=== PATIENT | female | born 1990 | race African-American/Black ===

== ENCOUNTER 2016-06-15 23:27 | Emergency (ER) | payer OTHER ==
[2016-06-15 23:38] VITALS: BP 138/70; PULSE 119; TEMP 98.2; BMI 42.2
[2016-06-16] MEDS ORDERED: ACETAMINOPHEN 325 MG TABLET (FP) PO ONE (00:17)
[2016-06-16] MEDS ORDERED: ACETAMINOPHEN 325 MG TABLET (FP) ONE (00:22)
--- NOTE | 2016-06-16 00:36 | PDOC ---
History of Present Illness - General History Source: Patient Exam Limitations: No Limitations - History of Present Illness Initial Comments: 06/16/16 00:39 The patient is a 25 year old female (; currently approximately 19 weeks ), with no significant past medical history, who presents to the emergency department with left ankle pain s/p a mechanical trip and fall down the stairs earlier this evening. The patient states that she missed a step and fell, landing on her buttocks. She states that she did not hit her head, denies head trauma or LOC. The patient denies neck pain, back pain or any numbness/ tingling. The patient denies any other injury. Allergies: Penicillins. Past Surgical History: None reported. Social History: Non smoker. Denies alcohol or drug use. OBGYN: Dr. Dover <Christina Gill - Last Filed: 06/16/16 02:10> - General History Source: Patient Exam Limitations: No Limitations <Alvaro Downey - Last Filed: 06/16/16 02:38> - General Chief Complaint: Injury Stated Complaint: FALL/INJURY/25 WKS Time Seen by Provider: 06/15/16 23:52 Past History <Christina Gill - Last Filed: 06/16/16 02:10> - Past Medical History Asthma: No Cancer: No Cardiac Disorders: No Diabetes: No HTN: No Seizures: No Thyroid Disease: No - Psycho/Social/Smoking Cessation Hx Anxiety: No Suicidal Ideation: No Smoking Status: No Smoking History: Never smoked Have you smoked in the past 12 months: No Number of Cigarettes Smoked Daily: 0 Information on smoking cessation initiated: No Hx Alcohol Use: No Drug/Substance Use Hx: No Substance Use Type: None Hx Substance Use Treatment: No <Alvaro Downey - Last Filed: 06/16/16 02:38> - Past Medical History Allergies/Adverse Reactions: Allergies Allergy/AdvReac Type Severity Reaction Status Date / Time Penicillins Allergy Hives Verified 06/15/16 23:38 Home Medications: Ambulatory Orders Pnv with Ca,No.71/Iron/FA [ Vitamin Tablet] 1 tab PO DAILY 05/23/12 Review of Systems - Review of Systems Able to Perform ROS?: Yes Comments:: 06/16/16 00:38 GENERAL/CONSTITUTIONAL: No fever or chills. No weakness. HEAD, EYES, EARS, NOSE AND THROAT: No change in vision. No ear pain or discharge. No sore throat. CARDIOVASCULAR: No chest pain or shortness of breath. RESPIRATORY: No cough, wheezing, or hemoptysis. GASTROINTESTINAL: No nausea, vomiting, diarrhea or constipation. GENITOURINARY: No dysuria, frequency, or change in urination. MUSCULOSKELETAL: +Left ankle pain. No muscle swelling or pain. No neck or back pain. SKIN: No rash. NEUROLOGIC: No headache, vertigo, loss of consciousness, or change in strength/ sensation. ENDOCRINE: No increased thirst. No abnormal weight change. HEMATOLOGIC/LYMPHATIC: No anemia, easy bleeding, or history of blood clots. ALLERGIC/IMMUNOLOGIC: No hives or skin allergy. <Christina Gill - Last Filed: 06/16/16 02:10> *Physical Exam - Vital Signs Last Vital Signs Temp Pulse Resp BP Pulse Ox 98.2 F 119 H 20 138/70 100 06/15/16 23:34 06/15/16 23:34 06/15/16 23:34 06/15/16 23:34 06/15/16 23:34 - Physical Exam Comments: 06/16/16 00:38 GENERAL: Awake, alert, and fully oriented, in no acute distress. HEAD: No signs of trauma. EYES: PERRLA, EOMI, sclera anicteric, conjunctiva clear. ENT: Auricles normal inspection, hearing grossly normal, nares patent, oropharynx clear without exudates. Moist mucosa. NECK: Normal ROM, supple, no lymphadenopathy, JVD, or masses. LUNGS: Breath sounds equal, clear to auscultation bilaterally. No wheezes, and no crackles. HEART: Regular rate and rhythm, normal S1 and S2, no murmurs, rubs or gallops. ABDOMEN: Soft, nontender, normoactive bowel sounds. No guarding, no rebound. No masses. EXTREMITIES: Swollen left ankle, tenderness to the lateral and medial malleolus , worse at the medial malleolus. No clubbing or cyanosis. No cords or erythema. NEUROLOGICAL: Cranial nerves II through XII intact. Normal speech, gait deferred. SKIN: Warm, dry, normal turgor, no rashes or lesions noted. <Christina Gill - Last Filed: 06/16/16 02:10> - Vital Signs Last Vital Signs Temp Pulse Resp BP Pulse Ox 98.2 F 119 H 20 138/70 100 06/15/16 23:34 06/15/16 23:34 06/15/16 23:34 06/15/16 23:34 06/15/16 23:34 <Alvaro Downey - Last Filed: 06/16/16 02:38> Procedures - Consent Consent obtained: Verbal, From Patient - Splinting Splint Location: Left: Ankle Pre-Proc Neuro Vasc Exam: normal <Alvaro Downey - Last Filed: 06/16/16 02:38> ED Treatment Course - Medications Given in the ED: ED Medications Discontinued Medications Generic Name Dose Route Start Last Admin Trade Name Freq PRN Reason Stop Dose Admin Acetaminophen 975 mg 06/16/16 00:17 06/16/16 00:19 Tylenol - PO 06/16/16 00:18 975 mg ONCE ONE Administration <Christina Gill - Last Filed: 06/16/16 02:10> - RADIOLOGY Radiology Studies Ordered: Category Date Time Status ANKLE-LEFT [RAD] Stat Radiology 06/16/16 00:17 Ordered - Medications Given in the ED: ED Medications Discontinued Medications Generic Name Dose Route Start Last Admin Trade Name Freq PRN Reason Stop Dose Admin Acetaminophen 975 mg 06/16/16 00:17 06/16/16 00:19 Tylenol - PO 06/16/16 00:18 975 mg ONCE ONE Administration <Alvaro Downey - Last Filed: 06/16/16 02:38> Medical Decision Making - Medical Decision Making 06/16/16 00:29 A portion of this note was documented by scribe services under my direction. I have reviewed the details of the note, within reason, and agree with the documentation with the following case summary and management plan written by me. Patient treated in the ED. Nursing notes are reviewed and incorporated into the medical decision-making. Vital signs reviewed. Peripheral IV access obtained by the nurse, laboratory studies are drawn and sent, reviewed and interpreted by myself. Vital Signs Temp Pulse Resp BP Pulse Ox 98.2 F 119 H 20 138/70 100 06/15/16 23:34 06/15/16 23:34 06/15/16 23:34 06/15/16 23:34 06/15/16 23:34 25-year-old female with no past medical history approximately 19 weeks , followed by Dr. Dover presents with mechanical fall. Patient twisted her ankle and landed on her buttocks. Denies abdominal pain or vaginal bleeding. Denies head trauma. Patient reports left ankle swelling and pain acutely worse at the medial malleolus. Patient fails [place] ankle rule. I discussed the risks and benefits of radiograph while with the patient. Given the minimal exposure of x-ray and abdominal coverage with lead, the patient agrees for ankle x-ray. We'll perform an ankle x-ray. 06/16/16 02:13 Xray reviewed by me, pending official radiology read. No acute fractures. however, I suspect that the patient has a high degree sprain. Patient placed in a posterior U splint and made non weight bearing. Elevate the leg. Ice PRN. Follow up with orthopedics. Pt will go home with her . Tylenol only for pain. Crutches given. I had called the L&D. Given less than 20 weeks, patient can be discharged from the ED and does not necessitate FHR monitoring. Pt has NO abdominal pain or vaginal bleed. She is cleared to be discharged. patient verbalizes understanding and agrees with plan. I discussed the physical exam findings, ancillary test results and final diagnoses with the patient. I answered all of the patient's questions. The patient was satisfied with the care received and felt comfortable with the discharge plan and treatment plan. The patient will call their primary care physician within 24 hours to arrange follow-up and will return to the Emergency Department with any new, persistant or worsening symptoms. 06/16/16 02:37 After discussing with [facility], they had reviewed the chart and confirmed that the patient is less than 20 weeks . I had confirmed with the patient and she reports that she is less than 20 weeks . <Alvaro Downey - Last Filed: 06/16/16 02:38> *DC/Admit/Observation/Transfer - Attestations Scribe Attestion: 06/16/16 00:38 Documentation prepared by Christina Gill, acting as medical radiation tech for Alvaro Downey MD. <Christina Gill - Last Filed: 06/16/16 02:10> - Discharge Dispostion Admit: No <Alvaro Downey - Last Filed: 06/16/16 02:38> Diagnosis at time of Disposition: High ankle sprain Qualifiers: Encounter type: initial encounter Laterality: left Qualified Code(s): S93.432A - Sprain of tibiofibular ligament of left ankle, initial encounter - Discharge Dispostion Disposition: HOME Condition at time of disposition: Improved - Referrals Referrals: Arthur Grier MD [Staff Physician] - - Patient Instructions Printed Discharge Instructions: DI for Ankle Sprain Additional Instructions: Elevate the leg as much as you can. 650 mg tylenol every 4 hours as needed for pain. Do not bear weight on the ankle. Use crutches. Follow up with your authorization manager. Call and schedule an appointment with an orthopedist, Dr. Grier. Ice as needed. - Post Discharge Activity Work/School Note: Back to Work
== END 2016-06-16 02:40 | disposition home or self-care (01) ==
LOC: JER 23:27
DX: S93.492A Sprain of other ligament of left ankle, initial encounter (principal); W10.8XXA Fall (on) (from) other stairs and steps, initial encounter; Y93.89 Activity, other specified; Y92.038 Other place in apartment as the place of occurrence of the external cause
CPT/HCPCS: 73610-TC-LT; 99283-25

== ENCOUNTER 2016-11-13 08:35 | Inpatient (IN) | payer OTHER ==
[2016-11-13] MEDS: ELECTROLYTE-148 SOLN 1,000 ML IV SCH (08:50)
--- NOTE | 2016-11-13 09:12 | HP ---
Past Medical History - Primary Care Physician PCP:: Timur Rose - Admission Chief Complaint: 40.4 weeks, previous c/s, request of repeat c/s History Source: Patient Limitations to Obtaining History: No Limitations - Past Surgical History Past Surgical History: Yes: Hx Myomectomy: No Hx Transabdominal Cerclage: No - Smoking History Smoking history: Never smoked Have you smoked in the past 12 months: No Aproximately how many cigarettes per day: 0 - Alcohol/Substance Use Hx Alcohol Use: No - Social History Usual Living Arrangement: Yes: With Spouse History of Recent Travel: No Home Medications - Allergies Allergies/Adverse Reactions: Allergies Allergy/AdvReac Type Severity Reaction Status Date / Time Penicillins Allergy Hives Verified 06/15/16 23:38 - Home Medications Home Medications: Ambulatory Orders Pnv with Ca,No.71/Iron/FA [ Vitamin Tablet] 1 tab PO DAILY 05/23/12 Iron 1 tab PO BID 11/06/16 Physical Exam - Maternity Constitutional: Yes: Well Nourished, No Distress, Calm Eyes: Yes: WNL, Conjunctiva Clear, EOM Intact HENT: Yes: WNL, Atraumatic, Normocephalic Neck: Yes: WNL, Supple, Trachea Midline Cardiovascular: Yes: WNL, Regular Rate and Rhythm Breast(s): Yes: WNL - Abdominal Exam/OB Fundal Height: 40 Number of Fetuses: Single Presentation: Vertex Regularity: Irregular Intensity: Unaware Monitor Mode: External Heart Rate Location: [facility] Category: I Accelerations: Uniform Decelerations: None - Vaginal Exam/OB Vaginal Bleediing: No Dilatation (cm): closed Effacement (%): 0 Amniotic Membrane Status: Intact Nitrazine Test: Negative Presentation: Vertex/Position Station: -3 - Physical Exam Edema: Yes Edema: LLE: Trace, RLE: Trace ...Motor Strength: WNL Psychiatric: Yes: WNL Hemorrhage Risk Assessment - Risk Factors Risk Score: 1 Risk Level: Medium Risk Problem List - Problems (1) Post term over 40 weeks Code(s): O48.0 - POST-TERM (2) Previous section complicating Code(s): O34.219 - MATERNAL CARE FOR UNSP TYPE SCAR FROM PREVIOUS DEL Assessment/Plan repeat c/s, rba discussed
[2016-11-13] MEDS ORDERED: CITRIC ACID/SODIUM CITRATE 30 ML UNIT-DOSE CUP PO ONE (09:16)
[2016-11-13 09:25] VITALS: BMI 43.0
[2016-11-13] MEDS ORDERED: IBUPROFEN 600 MG TABLET (FP) PO PRN (11:23)
[2016-11-13] MEDS ORDERED: morphine SULFATE/Preservative Free 0.5 MG/ML (1cc Syringe) SPIN ONE (11:23)
[2016-11-13] MEDS ORDERED: ONDANSETRON 4 MG/2 ML VIAL IVPB PRN (11:23)
--- NOTE | 2016-11-13 12:08 | SURG ---
Surgery Associate Quality Engineer Note Associate Quality Engineer: Adonay Rodriguez PA-C Date of Service: 11/13/16 Diagnosis: 40.4 weeks , previous section Procedure: section (boy) I was present for the entirety of the operative procedure. For further detail, please refer to operative report. Visit type - Case Type Case Type: Scheduled Admission - New patient This patient is new to me today: Yes Date on this admission: 11/13/16
[2016-11-13] MEDS ORDERED: METHYLERGONOVINE MALEATE 0.2 MG/1 ML AMP IM PRN (12:34)
[2016-11-13] MEDS ORDERED: diphenhydrAMINE HCL 25 MG CAPSULE (FP) PO PRN (12:34)
[2016-11-13] MEDS ORDERED: BENZOCAINE 28 GM HEMORRHOIDAL OINTMENT PR PRN (12:34)
[2016-11-13] MEDS ORDERED: IBUPROFEN 800 MG/8 ML IJ IVPB PRN (12:34)
[2016-11-13] MEDS ORDERED: oxyCODONE HCL 5 MG TABLET PO PRN (12:34)
[2016-11-13] MEDS ORDERED: BENZOCAINE 20% 57 GM BOTTLE TP PRN (12:34)
[2016-11-13] MEDS ORDERED: WITCH HAZEL 50% (TUCKS) 40 PAD/JAR PAD TP PRN (12:34)
[2016-11-13] MEDS ORDERED: OXYTOCIN 20 UNITS in 0.9% NS 1,000 ML IV SCH (12:45)
--- NOTE | 2016-11-13 17:52 | OP ---
DATE OF OPERATION: 11/13/2016 PREOPERATIVE DIAGNOSIS: , 40.4 weeks gestation; previous section; requests a repeat section. POSTOPERATIVE DIAGNOSIS: , 40.4 weeks gestation; previous section; requests a repeat section. PROCEDURE: Repeat low-segment transverse section. SURGEON: Liza Ahumada MD HYDROGENATION OPERATOR: DARYA Fylnn ANESTHESIA: Spinal. ANESTHESIOLOGIST: Dr. Adame ESTIMATED BLOOD LOSS: 500 mL FINDINGS: A live baby boy, occiput posterior position, Apgars 9 and 9. OPERATING COURSE: Patient was taken to the operating room. Under adequate spinal anesthesia, abdomen and perineum were prepped and draped. Pfannenstiel abdominal skin incision was made over the previous incision. Abdominal wall was cut layer by layer until peritoneum was exposed and incised. Upon entering the abdominal cavity, there were some upper abdominal, pelvic adhesions, and the bladder was adherent to the lower uterine segment. These adhesions were lysed with Metzenbaum scissors, and the bladder was released and pushed down. Then, a low transverse incision was made. Incision extended laterally. Amniotic sac was entered; clear fluid. Head delivered from occiput posterior position. Nasopharynx was suctioned. Live baby boy was delivered without any difficulty. Placenta was delivered manually. Uterine cavity was cleaned of all remaining tissue. Uterine incision was closed in 2 layers, first layer with 0 Biosyn continuous suture, the second layer with 0 Biosyn imbricating the first layer. Bladder flap was closed with 0 Biosyn continuous suture. Both tubes and ovaries were checked, were normal. No active bleeding was seen. All the lap pads, sponge, and instrument counts were correct. Peritoneum was closed with 0 Biosyn continuous suture. Muscles were brought together with interrupted sutures of 0 Biosyn. Fascia was closed with 0 Biosyn continuous suture, subcutaneous fat with interrupted suture of 3-0 Vicryl, and the skin was closed with subcuticular suture. Patient tolerated the procedure well, left the OR in good condition. LIZA AHUMADA M.D. /[id number]
[2016-11-13] MEDS: ACETAMINOPHEN 325 MG TABLET (FP) PO PRN (17:58)
[2016-11-13] MEDS: CLINDAMYCIN 600MG PREMIX IVPB 50 ML IVPB SCH (17:59)
[2016-11-14] MEDS: CLINDAMYCIN 600MG PREMIX IVPB 50 ML IVPB SCH ×2 (02:07→09:12)
[2016-11-14] MEDS: SIMETHICONE 80 MG TAB.CHEW (FP) PO PRN ×3 (07:14→20:25)
[2016-11-14] MEDS: IBUPROFEN 600 MG TABLET (FP) PO PRN ×2 (07:14→20:25)
[2016-11-14] MEDS: ACETAMINOPHEN 325 MG TABLET (FP) PO PRN ×3 (07:15→20:26)
[2016-11-14 07:35] LABS: BASOPHIL 0.2 % (0-2.0); EOSINOPHIL 1.1 % (0-4.5); MCHC 33.2 g/dl (32.0-36.0); MEAN CELL VOLUME 81.4 fl (80-96); MEAN PLT VOLUME 10.4 fl (7.5-11.1); NEUTROPHILS 77.6 % (42.8-82.8); PLATELET COUNT 138 K/MM3 (134-434); WHITE BLOOD COUNT 11.6 K/mm3 (4.0-10.0)
--- NOTE | 2016-11-14 08:32 | PN ---
Progress Note (short form) - Note Progress Note: Anesthesia postop note 26 y/o F s/p spinal anesthesia for section, duramorph for postop pain management POD#1, vss, aaox3, pain well controlled, sensorymotor intact distally No anesthesia complications.
[2016-11-14] MEDS ORDERED: DIPHTH,PERTUSS(ACELL),TET 0.5 ML DISP.SYRIN IM ONE (10:00)
[2016-11-14] MEDS: ELECTROLYTE-148 SOLN 1,000 ML IV SCH (10:04)
--- NOTE | 2016-11-14 10:32 | PN ---
Progress Note (short form) - Note Progress Note: pod 1 doing well, ambulating CBC, BMP 11/14/16 06:10 Last Vital Signs Temp Pulse Resp BP Pulse Ox 98.3 F 91 H 20 114/66 11/14/16 10:00 11/14/16 10:00 11/14/16 10:00 11/14/16 10:00 abdomen soft, no distension, no cva incision dry, clean no calf tenderness plan ambulate, advance diet pain management Problem List - Problems (1) Post term over 40 weeks Code(s): O48.0 - POST-TERM (2) Previous section complicating Code(s): O34.219 - MATERNAL CARE FOR UNSP TYPE SCAR FROM PREVIOUS DEL
[2016-11-14] MEDS ORDERED: BISACODYL 10 MG SUPP.RECT RC PRN (12:34)
[2016-11-14] MEDS: oxyCODONE HCL 5 MG TABLET PO PRN ×2 (14:25→20:26)
[2016-11-14] MEDS: DEXTROSE 5%-LACTATED RINGERS 1,000 ML IV SCH (16:04)
[2016-11-14] MEDS: SENNOSIDES/DOCUSATE COMBO (SENNA PLUS) TABLET (UD) PO PRN (20:25)
[2016-11-15] MEDS: SIMETHICONE 80 MG TAB.CHEW (FP) PO PRN ×3 (07:58→20:14)
[2016-11-15] MEDS: oxyCODONE HCL 5 MG TABLET PO PRN ×3 (07:58→20:14)
[2016-11-15] MEDS: IBUPROFEN 600 MG TABLET (FP) PO PRN ×3 (07:59→20:16)
[2016-11-15] MEDS: ACETAMINOPHEN 325 MG TABLET (FP) PO PRN ×2 (08:00→14:43)
--- NOTE | 2016-11-15 09:05 | PN ---
Post Progress Note - Subjective Subjective: 26 yo Para 2, status post repeat , seen and evaluated. She's breast feeding; she c/o mild incision pain. Post Day: 2 Type of Delivery: Repeat C/S Vital Signs: Vital Signs Temperature 99.6 F 11/14/16 20:28 Pulse Rate 95 H 11/14/16 20:28 Respiratory Rate 20 11/14/16 20:28 Blood Pressure 130/76 11/14/16 20:28 O2 Sat by Pulse Oximetry (%) Breast Exam: Yes: Soft Uterus: Yes: Fundus Firm Incision: Yes: Dressing dry and intact Abdomen/GI: Yes: Abdomen soft, Tolerating PO Lochia: Yes: Rubra Lochia, amount: Small Extremities: Yes: Calves non-tender Perineum: Yes: Intact Activity: Ambulating - Labs Labs: CBC WBC 11.6 K/mm3 (4.0-10.0) H 11/14/16 06:10 RBC 4.31 M/mm3 (3.60-5.2) 11/14/16 06:10 Hgb 11.7 GM/dL (10.7-15.3) 11/14/16 06:10 Hct 35.1 % (32.4-45.2) 11/14/16 06:10 MCV 81.4 fl (80-96) 11/14/16 06:10 MCH 27.0 pg (25.7-33.7) 11/14/16 06:10 MCHC 33.2 g/dl (32.0-36.0) 11/14/16 06:10 RDW 14.0 % (11.6-15.6) 11/14/16 06:10 Plt Count 138 K/MM3 (134-434) 11/14/16 06:10 MPV 10.4 fl (7.5-11.1) 11/14/16 06:10 Neutrophils % 77.6 % (42.8-82.8) 11/14/16 06:10 Lymphocytes % 14.3 % (8-40) D 11/14/16 06:10 Monocytes % 6.8 % (3.8-10.2) 11/14/16 06:10 Eosinophils % 1.1 % (0-4.5) 11/14/16 06:10 Basophils % 0.2 % (0-2.0) 11/14/16 06:10 Assessment/Plan Status post repeat Stable Continue routine Post op care
--- NOTE | 2016-11-15 16:04 | PATH ---
Surgical Pathology Report Patient Name: CHARIS MAHER Med. Rec. #: [id number] /Age/Gender: 1990 (Age: 26) / F Account: [id number] Location: [facility] OBS/PRIMARY OPERATOR Taken: 11/13/2016 Received: 11/14/2016 Reported: 11/15/2016 Physicians: Timur Rose M.D. Specimen(s) Received PLACENTA Clinical History , 40.4 GW; C/section 07/02 Scheduled repeat c/section Final Diagnosis PLACENTA, DELIVERY: INTACT THIRD TRIMESTER PLACENTA WITH FOCAL CHRONIC DECIDUITIS, MILD PREVILLOUS, PERIVILLOUS, AND PRECHORIONIC FIBRIN DEPOSITION, THREE VESSEL UMBILICAL CORD, AND PLACENTAL MEMBRANES WITH FOCAL AMNION HYPERPLASIA. Electronically Signed Vic Christianson M.D. Gross Description The specimen is received fresh, labeled "placenta" and is 605 gram, 18.0 x 17.0 x 2.9 cm placenta with attached membranes and umbilical cord. The attached membranes are cabello, focally thickened and focally opaque and insert marginally. The umbilical cord measures 38 cm in length and averages 0.9 cm in diameter. The cord inserts eccentrically, 5 cm to the nearest margin. No true knots or strictures are identified. Cut surface of the umbilical cord reveals 3 vessels. The surface is rivera-blue with minimal fibrin deposition and appropriate caliber vessels. The maternal surface is red-brown and intact. Sectioning reveals red-brown, spongy parenchyma. No focal lesions are identified. Vp Purchasing sections are submitted in three cassettes as follows: 1- membrane rolls and umbilical cord; 2-3- full thickness sections of placenta. AF/11/14/2016 final/11/14/2016
[2016-11-15] MEDS: DEXTROSE 5%-LACTATED RINGERS 1,000 ML IV SCH (16:08)
[2016-11-15] MEDS: ELECTROLYTE-148 SOLN 1,000 ML IV SCH (16:09)
[2016-11-15] MEDS: SENNOSIDES/DOCUSATE COMBO (SENNA PLUS) TABLET (UD) PO PRN (20:17)
[2016-11-15] MEDS ORDERED: OXYTOCIN 20 UNITS in 0.9% NS 1,000 ML IV SCH (23:15)
--- NOTE | 2016-11-16 00:43 | DS ---
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 Vital Signs: Vital Signs Temperature 98.3 F 11/15/16 22:00 Pulse Rate 93 H 11/15/16 22:00 Respiratory Rate 20 11/15/16 22:00 Blood Pressure 130/87 11/15/16 22:00 O2 Sat by Pulse Oximetry (%) Constitutional: Yes: Well Nourished, No Distress, Calm Eyes: Yes: WNL, Conjunctiva Clear, EOM Intact HENT: Yes: WNL, Atraumatic, Normocephalic Neck: Yes: WNL, Supple, Trachea Midline Cardiovascular: Yes: WNL, Regular Rate and Rhythm Respiratory: Yes: WNL, Regular, CTA Bilaterally Gastrointestinal: Yes: WNL ...Rectal Exam: Yes: WNL Renal/: Yes: WNL ....Post : Yes: Uterus firm, Uterus non-tender, Slight lochia serosa Breast(s): Yes: WNL Musculoskeletal: Yes: WNL Extremities: Yes: WNL Edema: Yes Edema: LLE: Trace, RLE: Trace Integumentary: Yes: WNL Wound/Incision: Yes: Clean/Dry, Well Approximated, Sutures Intact Neurological: Yes: WNL, Alert, Oriented ...Motor Strength: WNL Psychiatric: Yes: WNL, Alert, Oriented Labs: CBC, BMP 11/14/16 06:10 Delivery - Delivery Section: Repeat, Low Flap Transverse (no complication) Type of Anesthesia: Spinal Episiotomy/Laceration: None EBL (cc): 500 Delivery, Single - Stages of Labor Date 1st Stage Initiatied: 11/13/16 Time 1st Stage Initiated: 06:00 Date of Delivery: 11/13/16 Time of Delivery: 11:17 Time Placenta Delivered: 11:19 Placenta: Yes: Expressed - Condition of Infant Principal Strategist/Extractions Technologist Present: Yes Name: Felicia Milton Gender: Male Weight: 8 lb 8 oz Position: Right, OT Total Hours ROM (Hrs/Mins): 1min - 1 Minute Total Score: 9 5 Minutes Total Score: 9 - [place] Feeding Plan Initial Plan: Exclusive throughout hospitalization Discharge Summary Reason For Visit: CSECTION Current Active Problems Post term over 40 weeks (Acute) Previous section complicating (Acute) Procedures: Principal: repeat LST c/s Hospital Course: uncomplicated Condition: Good - Instructions Diet, Activity, Other Instructions: regular diet, , no intercourse. follow up [facility] care 1 week Referrals: Timur Rose MD [Staff Physician] - Disposition: HOME - Home Medications Comprehensive Discharge Medication List: Ambulatory Orders Pnv with Ca,No.71/Iron/FA [ Vitamin Tablet] 1 tab PO DAILY 05/23/12 Iron 1 tab PO BID 11/06/16 Ibuprofen [Motrin -] 600 mg PO QID #28 tablet 11/15/16 Oxycodone HCl/Acetaminophen [Percocet 5-325 mg Tablet] 1 tab PO Q6H #20 tablet MDD 4 11/15/16
[2016-11-16] MEDS ORDERED: DOCUSATE SODIUM 100 MG CAPSULE (FP) PO PRN (01:05)
[2016-11-16] MEDS: ACETAMINOPHEN 325 MG TABLET (FP) PO PRN (04:45)
[2016-11-16] MEDS: SIMETHICONE 80 MG TAB.CHEW (FP) PO PRN ×2 (04:46→09:09)
[2016-11-16] MEDS: oxyCODONE HCL 5 MG TABLET PO PRN ×2 (04:46→10:46)
[2016-11-16 06:45] LABS: BASOPHIL 0.3 % (0-2.0); EOSINOPHIL 3.2 % (0-4.5); MCH 26.7 pg (25.7-33.7); MCHC 32.6 g/dl (32.0-36.0); MEAN CELL VOLUME 82.1 fl (80-96); MEAN PLT VOLUME 10.6 fl (7.5-11.1); NEUTROPHILS 77.1 % (42.8-82.8); PLATELET COUNT 165 K/MM3 (134-434); RDW 14.2 % (11.6-15.6); WHITE BLOOD COUNT 11.6 K/mm3 (4.0-10.0)
[2016-11-16] MEDS: IBUPROFEN 600 MG TABLET (FP) PO PRN (09:08)
[2016-11-16 11:53] VITALS: BP 135/83; PULSE 91; TEMP 98.1
== END 2016-11-16 15:30 | disposition home or self-care (01) | DRG 540 ==
LOC: JLDR 08:35 → J3W 13:55
PROVIDERS: ADMIT Obstetrics & Gynecology; ATTEND Obstetrics & Gynecology
PROC: 10D00Z1 Extraction of Products of Conception, Low, Open Approach (ICD-10-PCS; principal; 2016-11-13)
DX: O48.0 Post-term pregnancy (principal); Z3A.40 40 weeks gestation of pregnancy; O34.211 Maternal care for low transverse scar from previous cesarean delivery; Z37.0 Single live birth
CPT/HCPCS: 36415; 85025; 88307-TC; 90715

== ENCOUNTER 2021-04-12 12:38 | Emergency (ER) | payer OTHER ==
[2021-04-12 14:08] VITALS: BP 106/73; PULSE 117; TEMP 98.7; BMI 31.2
[2021-04-12] MEDS ORDERED: ACETAMINOPHEN 325 MG TABLET (FP) PO ONE (15:03)
[2021-04-12] MEDS ORDERED: ACETAMINOPHEN 325 MG TABLET (FP) ONE ×2 (15:15→15:29)
== END 2021-04-12 17:30 ==
LOC: JER 12:38
DX: U07.1 COVID-19 (principal); R05.1 Acute cough; J02.9 Acute pharyngitis, unspecified
CPT/HCPCS: 87651; 87804; 99283-25; C9803; U0003; U0005

== ENCOUNTER 2021-12-04 14:21 | Emergency (ER) | payer OTHER ==
[2021-12-04 15:36] VITALS: BP 111/74; PULSE 82; RESP 17; TEMP 97.9; BMI 26.6
== END 2021-12-04 16:35 | disposition home or self-care (01) ==
LOC: JERFT 14:21
DX: T78.40XA Allergy, unspecified, initial encounter (principal)
CPT/HCPCS: 99283-25